=== PATIENT | female | born 2000 | race Two or more races ===

== ENCOUNTER 2022-09-25 16:59 | Emergency (ER) | payer OTHER ==
[~2022-09-25] VITALS: Ht 165.1 cm; Wt 63.0 kg
[2022-09-25 18:34] VITALS: BP 119/64
[2022-09-25] MEDS ORDERED: CEPH-510 PO (19:22)
[2022-09-25] MEDS ORDERED: ACET-1158 PO (19:22)
[2022-09-25] MEDS ORDERED: LIDOCAINE 1% HCL (LOCAL ANESTH.) INJ 20ML MDV ID ONE (19:30)
[2022-09-25] MEDS ORDERED: ceFAZolin 2 GM/D5W100ml 100 ML IV ONE (21:45)
[2022-09-25] MEDS ORDERED: CLIN300C8 PO (22:10)
[2022-09-25] MEDS ORDERED: ceFAZolin 1GM/50ML 50 ML IV ONE ×2 (22:45)
== END 2022-09-26 00:27 | disposition home or self-care (01) ==
LOC: ER 16:59
DX: S82.831A Other fracture of upper and lower end of right fibula, initial encounter for closed fracture (principal); S91.011A Laceration without foreign body, right ankle, initial encounter; V86.55XA Driver of 3- or 4- wheeled all-terrain vehicle (ATV) injured in nontraffic accident, initial encounter; Y93.89 Activity, other specified; Y92.89 Other specified places as the place of occurrence of the external cause; Y99.8 Other external cause status
CPT/HCPCS: 27786; 73610; 73700; 96365; 96366; 99285; J0690; J2001; 12005; 29515